=== PATIENT | male | born 1960 | race African-American/Black ===

== ENCOUNTER 2016-12-26 08:07 | Emergency (ER) | payer SELFPAY ==
[~2016-12-26] VITALS: Ht 170.2 cm; Wt 79.0 kg
[2016-12-26 09:10] VITALS: BP 180/94
== END 2016-12-26 09:51 | disposition left against medical advice (07) ==
LOC: ER 08:17
DX: R07.2 Precordial pain (principal); R10.9 Unspecified abdominal pain; Z72.0 Tobacco use
CPT/HCPCS: 93005; 99283; Z7610

== ENCOUNTER 2018-01-30 13:37 | Emergency (ER) | payer MEDICAID ==
[~2018-01-30] VITALS: Ht 170.2 cm; Wt 79.5 kg
[2018-01-30 14:20] VITALS: BP 141/77
[2018-01-30] MEDS ORDERED: LIDOCAINE HCL 1% 20ML VIAL (Pyxis) INJ INFIL ONE (16:00)
== END 2018-01-30 16:34 | disposition home or self-care (01) ==
LOC: ER 13:37
DX: T16.1XXA Foreign body in right ear, initial encounter (principal); F17.200 Nicotine dependence, unspecified, uncomplicated; F12.10 Cannabis abuse, uncomplicated; W45.8XXA Other foreign body or object entering through skin, initial encounter; Y93.89 Activity, other specified; Y92.018 Other place in single-family (private) house as the place of occurrence of the external cause; Y99.8 Other external cause status
CPT/HCPCS: 69200; 99284

== ENCOUNTER 2018-02-10 05:14 | Emergency (ER) | payer MEDICAID ==
[~2018-02-10] VITALS: Ht 170.2 cm; Wt 79.0 kg
[2018-02-10 06:47] VITALS: BP 135/88
== END 2018-02-10 06:48 | disposition home or self-care (01) ==
LOC: ER 05:14
DX: H60.91 Unspecified otitis externa, right ear (principal); Z98.890 Other specified postprocedural states
CPT/HCPCS: 99283

== ENCOUNTER 2023-06-18 09:06 | Emergency (ER) | payer MEDICAID ==
[~2023-06-18] VITALS: Ht 170.2 cm; Wt 77.0 kg
[2023-06-18 09:20] VITALS: TEMP 98.6; O2SAT 100
[2023-06-18] MEDS: IBUPROFEN 600MG TABLET PO STA (10:33)
[2023-06-18] MEDS: ACETAMINOPHEN 325MG TABLET PO STA (10:34)
[2023-06-18 11:23] LABS: CLARITY URINE CLEAR (CLEAR); COLOR URINE YELLOW (YELLOW); GLUCOSE URINE NEGATIVE (NEGATIVE); KETONES URINE NEGATIVE (NEGATIVE); LEUKOCYTE ESTERASE URINE NEGATIVE (NEGATIVE); NITRITE URINE NEGATIVE (NEGATIVE); OCCULT BLOOD URINE NEGATIVE (NEGATIVE); PH URINE 5.5 (4.5-8.0); PROTEIN URINE NEGATIVE (NEGATIVE); SPECIFIC GRAVITY URINE 1.024 (1.005-1.030)
[2023-06-18 11:30] VITALS: BP 149/88; PULSE 79; RESP 19
[2023-06-18] MEDS ORDERED: IBUP-2028 MT (11:46)
== END 2023-06-18 12:02 | disposition home or self-care (01) ==
LOC: ER 09:18
DX: M54.50 Low back pain, unspecified (principal); I10 Essential (primary) hypertension; F12.10 Cannabis abuse, uncomplicated; Z98.890 Other specified postprocedural states
CPT/HCPCS: 81003; 99283

== ENCOUNTER 2024-05-12 11:14 | Emergency (ER) | payer BC, MEDICAID ==
[~2024-05-12] VITALS: Ht 170.2 cm; Wt 77.0 kg
[~2024-05-12 11:14] MED LIST: IBUP-2028 MT
[2024-05-12 11:19] VITALS: O2SAT 100
[2024-05-12 11:31] VITALS: O2SAT 100
[2024-05-12 12:38] VITALS: BP 156/92; PULSE 100; RESP 20
[2024-05-12] MEDS: METHOCARBAMOL 750MG TABLET PO SCH (12:38)
[2024-05-12] MEDS: IBUPROFEN 400MG TABLET PO ONE (12:38)
[2024-05-12] MEDS ORDERED: LIDO700A15 TP (14:06)
[2024-05-12] MEDS ORDERED: TOPUD PO (14:06)
[2024-05-12] MEDS ORDERED: IBUP-2028 MT (14:06)
[2024-05-12] MEDS ORDERED: METH-653 MT (14:06)
== END 2024-05-12 14:15 | disposition home or self-care (01) ==
LOC: ER 11:14
DX: M54.2 Cervicalgia (principal); M25.512 Pain in left shoulder; M19.012 Primary osteoarthritis, left shoulder; I10 Essential (primary) hypertension; Z87.891 Personal history of nicotine dependence; F10.90 Alcohol use, unspecified, uncomplicated; F12.90 Cannabis use, unspecified, uncomplicated; V89.2XXA Person injured in unspecified motor-vehicle accident, traffic, initial encounter; Y93.89 Activity, other specified; Y92.89 Other specified places as the place of occurrence of the external cause; Y99.8 Other external cause status; Y90.9 Presence of alcohol in blood, level not specified
CPT/HCPCS: 71045; 72040; 73030; 99284